=== PATIENT | male | born 1995 | race Caucasian/White ===

== ENCOUNTER 2017-12-31 11:00 | Emergency (ER) | payer BC ==
[~2017-12-31] VITALS: Ht 185.4 cm; Wt 113.8 kg
[2017-12-31 11:16] VITALS: Ht 185.4 cm; Wt 113.8 kg
[2017-12-31 12:56] VITALS: BP 129/79
== END 2017-12-31 12:56 | disposition home or self-care (01) ==
LOC: ED 11:00
DX: S01.81XA Laceration without foreign body of other part of head, initial encounter (principal); W22.8XXA Striking against or struck by other objects, initial encounter; Y93.89 Activity, other specified; Y92.89 Other specified places as the place of occurrence of the external cause; Y99.8 Other external cause status
CPT/HCPCS: 90715; J2001

== ENCOUNTER 2018-08-14 16:33 | Emergency (ER) | payer SELFPAY ==
[~2018-08-14] VITALS: Ht 188 cm; Wt 112.0 kg
[2018-08-14 16:45] VITALS: BP 150/113; Ht 188 cm; Wt 112.0 kg
== END 2018-08-14 19:03 | disposition home or self-care (01) ==
LOC: ED 16:33
DX: J40 Bronchitis, not specified as acute or chronic (principal); R03.0 Elevated blood-pressure reading, without diagnosis of hypertension
CPT/HCPCS: J7613